=== PATIENT | male | born 1965 | race Caucasian/White ===

== ENCOUNTER 2021-11-21 09:55 | Outpatient (CLI) | payer OTHER, SELFPAY ==
--- NOTE | 2021-11-21 10:03 | ECHOCS_ITS ---
Reason For Study: CHEST PAIN Procedure This was a 2D Doppler, Color Flow transthoracic echocardiogram. The study was technically difficult. Contrast injection was performed. Exam performed in department. Left Ventricle Normal LV size. Left ventricular systolic function is normal. The estimated ejection fraction is 60 %. No evidence for diastolic dysfunction. No regional wall motion abnormalities noted. Right Ventricle Normal RV size. Normal systolic function. Atria Normal left atrium. Normal right atrium. No doppler evidence for ASD. Mitral Valve There is no mitral annular calcification. Normal mitral valve. Trivial mitral valve insufficiency. Tricuspid Valve Normal tricuspid valve. Trivial tricuspid valve insufficiency. Right ventricular systolic pressure estimated to be 26 mmHg. Aortic Valve Trisinus/trileaflet aortic valve. Normal aortic valve. Trivial eccentric aortic valve insufficiency. Pulmonic Valve The pulmonic valve is not well visualized. Mild (1+) pulmonic valve insufficiency. Great Vessels Normal sized aortic root. Pericardium/Pleural No pericardial effusion. Medication 22 gauge I.V. with prn adaptor inserted into right arm. Diluted definity 4ml given slow IV push to enhance endocardial definition. MMode/2D Measurements & Calculations LVIDd: 3.5 cm IVSd: 0.86 cm Ao root diam: 3.2 cm LVIDs: 2.3 cm LVPWd: 0.87 cm RVDd: 3.2 cm FS: 33.8 % LAV(MOD-bp): 24.7 ml LVAd ap4: 30.8 cm2 SV(MOD-sp4): 56.3 ml LAV(MOD-bp) Indexed: 11.5 ml/m2 LVLd ap4: 7.9 cm LAV(MOD-sp2): 23.9 ml EDV(MOD-sp4): 95.4 ml LAV(MOD-sp4): 20.5 ml EDV(sp4-el): 101.3 ml LVAs ap4: 18.1 cm2 LVLs ap4: 6.8 cm ESV(MOD-sp4): 39.1 ml ESV(sp4-el): 41.2 ml EF(MOD-sp4): 59.0 % EF(sp4-el): 59.3 % SV(sp4-el): 60.1 ml LA A4 area: 10.8 cm2 LA dimension(2D): 2.8 cm RA A4 area: 10.5 cm2 Time Measurements MV dec time: 0.20 sec Doppler Measurements & Calculations MV E max evan: 69.1 cm/sec Lat Peak E' Evan: 12.5 cm/sec Med Peak E' Evan: 8.4 cm/sec MV A max evan: 59.7 cm/sec E/E' lat: 5.5 E/E' med: 8.2 MV E/A: 1.2 Ao V2 max: 93.9 cm/sec LV V1 max: 93.5 cm/sec PA V2 max: 80.4 cm/sec Ao max P.5 mmHg LV V1 max P.5 mmHg TR max evan: 237.1 cm/sec TR max P.5 mmHg ECHO/Echo Complete W/ Contrast Interpretation Summary The study was technically difficult. Contrast injection was performed. Left ventricular systolic function is normal. The estimated ejection fraction is 60 %. Trivial mitral valve insufficiency. Trivial tricuspid valve insufficiency. Trivial eccentric aortic valve insufficiency. Mild (1+) pulmonic valve insufficiency. Right ventricular systolic pressure estimated to be 26 mmHg. No evidence for diastolic dysfunction. Ordering Physician: Ivette Aguirre Referring Physician: Ivette Aguirre Performed By: Stacia Marlow RDCS
== END 2021-11-21 23:59 | disposition home or self-care (01) ==
PROVIDERS: PCP Family Medicine; Referring Provider Family Medicine; Visit Provider Family Medicine
DX: I40.0 Infective myocarditis (principal); R07.9 Chest pain, unspecified; Z86.16 Personal history of COVID-19
CPT/HCPCS: 93306; Q9957; A4216; C8929

== ENCOUNTER → 2023-08-06 | Outpatient (CLI) | payer OTHER, SELFPAY ==
[2023-08-06 09:23] LABS: T4 Free Direct 0.82 ng/dL (0.76-1.46); Thyroid Stim Hormone (TSH) 3.42 uIU/mL (0.358-3.74)
[2023-08-06 10:06] LABS: Hemoglobin A1c 5.5 % (3.8-5.6)
== END | disposition home or self-care (01) ==
PROVIDERS: PCP Family Medicine; Referring Provider Family Medicine; Visit Provider Family Medicine
DX: R07.9 Chest pain, unspecified (principal); R73.09 Other abnormal glucose; E03.9 Hypothyroidism, unspecified
CPT/HCPCS: 36415; 83036; 84439; 84443; 93005

== ENCOUNTER → 2023-12-01 | Outpatient (CLI) | payer OTHER, SELFPAY ==
--- NOTE | 2023-12-01 08:02 | ECHOCS_ITS ---
Version 2 Reason For Study: ATRIAL FIBRILLATION Procedure This was a 2D Doppler, Color Flow transthoracic echocardiogram. Contrast injection was performed. Exam performed in department. Left Ventricle Normal LV size. Left ventricular systolic function is normal. The estimated ejection fraction is 65 %. Normal diastology for age. No regional wall motion abnormalities noted. Right Ventricle Normal RV size. Normal systolic function. Atria Normal left atrium. The right atrium is not well visualized. Mitral Valve Normal mitral valve. Tricuspid Valve The tricuspid valve is not well visualized. Mild tricuspid valve insufficiency. Pulmonary artery systolic pressure is 22 mmHg. Aortic Valve Trisinus/trileaflet aortic valve. Trivial aortic valve insufficiency. Pulmonic Valve Normal pulmonic valve. Great Vessels Normal aortic root. The pulmonary artery is normal size. Inferior vena cava collapse with respiration. Pericardium/Pleural No pericardial effusion. Medication 22 gauge I.V. with prn adaptor inserted into right arm. Diluted definity 2.0ml given slow IV push to enhance endocardial definition. MMode/2D Measurements & Calculations LVIDd: 4.0 cm IVSd: 0.95 cm Ao root diam: 3.4 cm LVIDs: 2.8 cm LVPWd: 1.0 cm RVDd: 2.9 cm FS: 29.3 % LAV(MOD-bp): 55.1 ml LVAd ap4: 22.9 cm2 LVAd ap2: 16.2 cm2 LAV(MOD-bp) Indexed: 24.7 ml/m2 LVLd ap4: 8.3 cm LVLd ap2: 7.7 cm LAV(MOD-sp2): 53.5 ml EDV(MOD-sp4): 53.2 ml EDV(MOD-sp2): 28.8 ml LAV(MOD-sp4): 53.6 ml EDV(sp4-el): 53.2 ml EDV(sp2-el): 29.2 ml LVAs ap4: 13.0 cm2 LVAs ap2: 8.8 cm2 LVLs ap4: 6.6 cm LVLs ap2: 6.2 cm ESV(MOD-sp4): 20.8 ml ESV(MOD-sp2): 11.4 ml ESV(sp4-el): 21.6 ml ESV(sp2-el): 10.8 ml EF(MOD-sp4): 60.9 % EF(MOD-sp2): 60.6 % EF(sp4-el): 59.3 % SV(MOD-sp4): 32.4 ml SV(MOD-sp2): 17.5 ml SV(sp4-el): 31.6 ml LA A4 area: 19.1 cm2 LA dimension(2D): 3.4 cm RA A4 area: 11.2 cm2 TAPSE: 1.8 cm Time Measurements MV dec time: 0.16 sec Doppler Measurements & Calculations MV E max evan: 79.8 cm/sec Lat Peak E' Evan: 12.9 cm/sec Med Peak E' Evan: 12.3 cm/sec MV A max evan: 58.6 cm/sec E/E' lat: 6.2 E/E' med: 6.5 MV E/A: 1.4 MV V2 max: 89.3 cm/sec MV P1/2t max evan: 96.4 cm/sec Ao V2 max: 97.1 cm/sec MV max P.2 mmHg MV P1/2t: 55.4 msec Ao max P.8 mmHg MV V2 mean: 42.9 cm/sec Ao V2 mean: 73.6 cm/sec MV mean P.94 mmHg MV dec slope: 509.9 cm/sec2 Ao mean P.4 mmHg MV V2 VTI: 19.3 cm MVA(P1/2t): 4.0 cm2 Ao V2 VTI: 23.2 cm AV (velocity ratio): 0.86 LV V1 max: 89.6 cm/sec PA V2 max: 79.3 cm/sec TR max evan: 216.4 cm/sec LV V1 max P.2 mmHg PA V2 mean: 53.5 cm/sec TR max P.7 mmHg LV V1 mean P.7 mmHg LV V1 mean: 61.1 cm/sec LV V1 VTI: 20.0 cm ECHO/Echo Complete W/ Contrast Interpretation Summary Normal LV size. Left ventricular systolic function is normal. The estimated ejection fraction is 65 %. Normal diastology for age. Contrast injection was performed. Ordering Physician: Aurelio Patel Referring Physician: Ivette Aguirre Performed By: Tosha Molina, JUAN, RVT
== END | disposition home or self-care (01) ==
LOC: CVS 08:01
PROVIDERS: PCP Family Medicine; Referring Provider Internal Medicine Cardiovascular Disease; Visit Provider Internal Medicine Cardiovascular Disease
DX: I48.91 Unspecified atrial fibrillation (principal)
CPT/HCPCS: 93306; Q9957; A4216; C8929